=== PATIENT | female | born 1955 | race Caucasian/White ===

== ENCOUNTER 2018-10-03 11:42 | Emergency (ER) | payer OTHER ==
[~2018-10-03] VITALS: Ht 165.1 cm; Wt 65.0 kg
[~2018-10-03 11:42] MED LIST: ACET-141 PO; ASPI-903 PO; ATOR-2 PO; HYDR25TA6 PO; LEVO112T42 PO; LISI10TA2 PO; SERT25TA PO
[2018-10-03 11:46] VITALS: Ht 165.1 cm; Wt 65.0 kg
[2018-10-03] MEDS ORDERED: DIPHENHYDRAMINE 50 MG INJ IV STA (11:57)
[2018-10-03] MEDS ORDERED: ACETAMINOPHEN 325 MG TAB PO STA (11:57)
[2018-10-03] MEDS ORDERED: METOCLOPRAMIDE 10 MG INJ IV STA (11:57)
--- NOTE | 2018-10-03 12:51 | ERD ---
ER Documentation Chief Complaint Chief Complaint headache and htn started while getting ready for a stress test this am HPI This is a 62-year-old female with a past medical history of hypertension, prediabetes, previous CVA with no residual deficits who is presenting for 4 days of an occipital headache and palpitations. The patient reports waxing and waning throbbing pulsating occipital headache pains over the last 4 days. It is not the worst headache of her life. She does not endorse any photophobia or phonophobia. She does not endorse double or blurry vision. She reports nausea without vomiting. The patient has had no focal deficits. The patient has had no weakness or numbness or tingling to the face or extremities. The patient also endorses intermittent waxing and waning nonradiating mid substernal pressure-like chest pain with associated palpitations and heaviness. The patient does not endorse shortness of breath. She does not endorse lightheadedness or dizziness. She does not endorse diaphoresis. The patient was scheduled to get a stress test this morning, as her cardiac symptoms have been ongoing for some time. However, the patient developed this pressure-like chest pain prior to the stress test and she was found to be quite hypertensive. She was given aspirin and nitroglycerin, and an ambulance was called to bring her to the emergency department for further assessment. The patient reports that she was seen in an outside hospital emergency department 2 days ago for similar symptoms and ultimately discharged with an unremarkable work-up. The patient denies feeling sick recently. The patient denies fever or chills. The patient does not endorse neck or back pain. The patient denies abdominal pain. The patient denies changes to bowel movements or urination. ROS All systems reviewed and are negative except as per history of present illness. Medications Home Meds Reported Medications Sertraline Hcl* (Zoloft*) 25 Mg Tablet, 25 MG PO DAILY, #30 TAB 10/03/18 Lisinopril* (Lisinopril*) 10 Mg Tablet, 10 MG PO DAILY, #30 TAB 10/03/18 Levothyroxine Sodium* (Levoxyl*) 112 Mcg Tablet, 112 MCG PO BEFORE BREAKFAST, #30 TAB 10/03/18 Hydrochlorothiazide* (Hydrochlorothiazide*) 25 Mg Tab, 25 MG PO DAILY, #30 TAB 10/03/18 Atorvastatin* (Atorvastatin*) 80 Mg Tablet, 80 MG PO QHS, #30 TAB 10/03/18 Aspirin* (Aspirin* Chew) 81 Mg Tab.chew, 81 MG PO DAILY, TAB.CHEW 10/03/18 Acetaminophen* (Acetaminophen*) 500 MG Extra Strength Tablet, 1000 MG PO Q8H PRN for PAIN AND OR ELEVATED TEMP, TAB 10/03/18 Allergies Allergies: Coded Allergies: No Known Allergy (Unverified , 10/03/18) PMhx/Soc History of Surgery: No Anesthesia Reaction: No Hx Neurological Disorder: Yes (CVA ) Hx Respiratory Disorders: No Hx Cardiac Disorders: Yes (Hypertension, prediabetes) Hx Psychiatric Problems: No Hx Miscellaneous Medical Probl: No Hx Alcohol Use: No Hx Substance Use: No Hx Tobacco Use: No Smoking Status: Never smoker FmHx Family History: No diabetes Physical Exam Vitals Vital Signs Date Temp Pulse Resp B/P (MAP) Pulse Ox O2 O2 Flow FiO2 Time Delivery Rate 10/03/18 98.7 92 16 123/77 97 Room Air 14:52 (92) 10/03/18 98.2 95 21 143/77 95 Room Air 13:30 (99) 10/03/18 98.2 102 16 134/63 97 Room Air 13:00 (86) 10/03/18 98.2 110 18 180/88 98 11:46 (118) Physical Exam Const: No apparent distress, well-developed, well-nourished Head: Normocephalic, Atraumatic Eyes: Normal Conjunctiva. Extraocular movements intact. Pupils equal, round and reactive to light ENT: Normal External Ears, Nose and Mouth. Neck: Full range of motion. No meningismus. Resp: Clear to auscultation bilaterally, No wheezes, rales or rhonchi Cardio: Regular rate and rhythm. No murmurs, rubs or gallops Abd: Soft, non tender, non distended. Normal bowel sounds Skin: No petechiae or rashes Back: No midline tenderness. No CVA tenderness Ext: No cyanosis, or edema Neur: Awake and alert, oriented 4. Cranial nerves intact. No facial droop. Normal strength, sensation and coordination. Psych: Normal Mood and Affect Result Diagram: 10/03/18 1218 10/03/18 1218 Results 24 hrs Laboratory Tests Test 10/03/18 12:18 10/03/18 15:27 White Blood Count 9.6 10^3/ul Red Blood Count 4.86 10^6/ul Hemoglobin 14.3 g/dl Hematocrit 42.9 % Mean Corpuscular Volume 88.3 fl Mean Corpuscular Hemoglobin 29.4 pg Mean Corpuscular Hemoglobin Concent 33.3 g/dl Red Cell Distribution Width 12.7 % Platelet Count 201 10^3/UL Mean Platelet Volume 10.9 fl Immature Granulocytes % 0.500 % Neutrophils % 84.5 % Lymphocytes % 13.0 % Monocytes % 1.8 % Eosinophils % 0.0 % Basophils % 0.2 % Nucleated Red Blood Cells % 0.0 /100WBC Immature Granulocytes # 0.050 10^3/ul Neutrophils # 8.1 10^3/ul Lymphocytes # 1.3 10^3/ul Monocytes # 0.2 10^3/ul Eosinophils # 0.0 10^3/ul Basophils # 0.0 10^3/ul Nucleated Red Blood Cells # 0.0 10^3/ul Prothrombin Time 12.5 Sec Prothrombin Time Ratio 1.0 INR International Normalized Ratio 0.92 Activated Partial Thromboplast Time 29.9 Sec Urine Color YELLOW Urine Clarity CLEAR Urine pH 6.0 Urine Specific [place] 1.021 Urine Ketones NEGATIVE mg/dL Urine Nitrite NEGATIVE mg/dL Urine Bilirubin NEGATIVE mg/dL Urine Urobilinogen NEGATIVE mg/dL Urine Leukocyte Esterase NEGATIVE Jaclyn/ul Urine Hemoglobin NEGATIVE mg/dL Urine Glucose NEGATIVE mg/dL Urine Total Protein NEGATIVE mg/dl Sodium Level 144 mmol/L Potassium Level 4.3 mmol/L Chloride Level 106 mmol/L Carbon Dioxide Level 27 mmol/L Anion Gap 11 Blood Urea Nitrogen 16 mg/dl Creatinine 0.59 mg/dl Est Glomerular Filtrat Rate mL/min > 60 mL/min Glucose Level 122 mg/dl Calcium Level 9.6 mg/dl Troponin I < 0.012 ng/ml < 0.012 ng/ml Current Medications Medications Dose Sig/[place] Start Time Status Last (Trade) Ordered Route PRN Stop Time Admin Dose Reason Admin 650 mg ONCE STAT 10/03/18 DC 10/03/18 Acetaminophen PO 11:57 12:52 (Tylenol 10/03/18 11:59 Tab) 10 mg ONCE STAT 10/03/18 DC 10/03/18 Metoclopramid IV 11:57 12:52 e HCl 10/03/18 12:00 (Reglan) 25 mg ONCE STAT 10/03/18 DC 10/03/18 Diphenhydrami IV 11:57 12:52 ne HCl 10/03/18 12:00 (Benadryl) Ketorolac 15 mg ONCE STAT 10/03/18 DC 10/03/18 Tromethamine IV 13:08 13:21 (Toradol) 10/03/18 13:09 Procedures/MDM MDM The patient's presentation warrants further investigation. Previous medical records, if available, were reviewed. LABS The patient's laboratory testing was obtained and reviewed. No emergent treatment was required unless described below. CBC: No E/o systemic infection or severe anemia or thrombocytopenia Chemistry: No E/o severe acidosis or alkalosis or renal failure or diabetic ketoacidosis PT/INR: No E/o significant coagulopathy Troponin: No E/o acute ischemia x2 Urine: No E/o acute infection or hematuria EKG EKG read by me: Rate/Rhythm: Sinus tachycardia at 101 bpm Intervals: Normal [place]: Right axis deviation Impression: No evidence of acute ischemia. Sinus tachycardia. IMAGING Imaging and Radiology interpretation reviewed. CXR FINDINGS: There is bilateral lung base atelectasis versus scarring. The heart size is normal. There is no pleural effusion. There is no pneumothorax. IMPRESSION: There is bilateral lung base atelectasis versus scarring. Electronically viewed and signed by Physician Kashif on 10/03/2018 12:37 CT Head FINDINGS: Hemorrhage: No evidence of intracranial hemorrhage. Acute ischemic changes: No evidence of acute ischemic changes. Mass effect: None. Parenchymal volume: Within normal limits for age. Ventricular system: Concordant with parenchymal volume.Chronic changes: Small area of encephalomalacia involving the left frontal lobe from prior infarction. Mild chronic-appearing microvascular ischemic changes of the supratentorial white matter. Extracranial soft tissues: Unremarkable. Calvarium: No fractures. Paranasal sinuses: Visualized paranasal sinuses are clear. Mastoid air cells: Visualized mastoid air cells are clear. IMPRESSION: No acute intracranial abnormalities. Mild chronic-appearing microvascular ischemic changes of the supratentorial white matter with small area of encephalomalacia involving the left frontal lobe from prior infarction. Electronically viewed and signed by .Arron Bishop MD, MD on 10/03/2018 13:02 TREATMENT/DISPOSITION The patient presents for multiple complaints. The patient endorses chest heaviness and palpitations. She is scheduled to have a stress test today, but due to the patient's symptoms and hypertension, she was ultimately transferred to the emergency department for further assessment. The patient was given aspirin and nitroglycerin prior to arrival. The patient's blood pressure was elevated in the emergency department. She was given a dose of Cardene in the ER. The patient's chest xray does not reveal pneumonia or pneumothorax or pleural effusions or pulmonary edema. The patient does not have a widened m ediastinum and does not have signs or symptoms concerning for thoracic aortic aneurysm or dissection. The patient does not have pneumomediastinum or signs concerning for esophageal tear or rupture. The patient has no clinical or radiographic signs of pericardial effusion or tamponade. The patient does not have pneumoperitoneum and I have decreased suspicion of viscus perforation as possible referred pain. The patient does not have a history of heart failure and I have low suspicion for this. The patient does not have a diagnosis of COPD and is not wheezing today. The patient is not tachypneic or hypoxic. The patient is breathing comfortably and without pleuritic pain. The patient is not on hormonal therapy. The patient has no history of clotting or bleeding disorders. The patient has no calf tenderness. The patient has had no hemoptysis. I have decreased suspicion for PE. The patient's troponin and EKG are reassuring. The patient's repeat troponin remains negative. I have low suspicion for acute coronary syndrome. The patient's HEART score is equal to or less than 3. This stratifies the patient into the low risk (<1%) group for an major adverse cardiac event within the next 30 days. Shared decision making was enacted. The risks and benefits of admission and discharge were discussed with the patient and it was ultimately decided that the patient would be discharged with close outpatient follow up and evaluation for functional testing within 72 hours. The patient presents with a headache as well. This could be related to the patient's elevated blood pressure. Given the patient's history of CVA, CT scan was performed which did not reveal any acute abnormalities. Differential diagnosis includes migraine, tension headache, cluster headache. The patient has no focal deficits. The neurologic exam is reassuring. I have decreased suspicion for cerebral ischemia. There was no trauma or injury. There is no personal or family history of cerebral aneurysm. This is not the worst headache of the patient's life. It was not acutely severe. It is been progressive in nature. I have decreased suspicion for SAH or other ICH. I have low suspicion for temporal arteritis, cavernous venous thrombosis, subdural hematoma, epidural hematoma, meningitis. DISCHARGE Upon reevaluation of the patient, symptoms have improved. No emergent diagnoses were identified. At this time, I feel that the patient stable for discharge. The patient was instructed to follow-up with a primary care physician in 1-3 days. The patient will be given strict precautions with which to return to the emergency department. Prescriptions: None The patient's blood pressure was elevated at greater than 120/80 while in the emergency department. The patient was otherwise stable with no evidence of hypertensive urgency or emergency. The patient does not require admission for blood pressure control. I have discussed with the patient the risks of hypertension. I have instructed the patient to return to the ER for any new or worsening symptoms including chest pain, shortness of breath, headache, blurred vision, confusion, nausea, vomiting or LOC. I have advised the patient to follow up with the primary care physician for outpatient monitoring and treatment for hypertension in 1-3 days. DISCLAIMER Inadvertent spelling and grammatical errors are likely due to EHR/dictation software use and do not reflect on the overall quality of patient care. Note that the electronic time recorded on this note does not necessarily reflect the actual time of the patient encounter. Departure Diagnosis: Primary Impression: Headache Headache type: unspecified Headache chronicity pattern: episodic headache Intractability: not intractable Qualified Codes: R51 - Headache Additional Impressions: Nonspecific chest pain Palpitations Hypertension Hypertension type: essential hypertension Qualified Codes: I10 - Essential (primary) hypertension Condition: Stable Patient Instructions: Self-Care for Headaches, Chest Pain, Uncertain Cause, High Blood Pressure (Hypertension) Additional Instructions: Thank you for for coming to [facility] for your care today. Please ask your nurse or provider if you have questions about your care today and do not leave until all your questions have been answered. Please use any medications given as directed and follow-up with your doctor (or the doctor you were referred to) in the next 1-3 days. If you do not have a primary care doctor you may follow up at the [facility] or [facility] (listed below). You may also use motrin and tylenol as needed for fever and/or pain unless instructed otherwise by your provider or nurse. Indications for more urgent follow-up have been discussed, but you may return to the Emergency Department at ANY time for any worrisome or worsening symptoms. If you have abdominal pain, please know that no test or exam you received is perfect and you should follow up within 8 hours for continued pain. If you had any imaging studies today, such as an X-Ray or CT Scan, these studies will be reviewed later by a radiologist. You will be called if there are important findings that were not identified today, so make sure the contact information you provided at registration is correct. If you received any narcotic pain control medicine today, such as Vicodin, Morphine or Dilaudid, your coordination and judgment may be affected for a number of hours. Please do not drive or operate heavy machinery, and you may want someone to assist you at home. If you were given a prescription for narcotic medication, be aware that it is very addictive- use sparingly and only if necessary. PLEASE SEEK FURTHER EVALUATION AND MANAGEMENT AT YOUR DOCTORS OFFICE WITHIN THE NEXT 1-3 DAYS. IT IS YOUR RESPONSIBILITY TO MAKE AN APPOINTMENT FOR FOLOW-UP CARE. IF YOU HAVE A PRIMARY DOCTOR, PLEASE CALL THEIR OFFICE TO SCHEDULE AN APPOINTMENT FOR FOLLOW UP. IF YOU DO NOT HAVE A PRIMARY DOCTOR YOU CAN CALL OUR PHYSICIAN REFERRAL HOTLINE AT IF YOU CAN NOT AFFORD TO SEE A PHYSICIAN YOU CAN CHOSE FROM THE FOLLOWING [facility]: [facility] [address]. [facility] [address] [facility] [address] [facility] [facility] [address] [facility]. [facility] [address] [facility]. [facility]. [address] PRINCESS MCGUIRE MD Oct 03, 2018 12:43
[2018-10-03] MEDS ORDERED: KETOROLAC 15 MG INJ IV STA ×2 (13:08→16:11)
[2018-10-03 16:32] VITALS: BP 141/70; PULSE 89; RESP 16
== END 2018-10-03 16:40 | disposition home or self-care (01) ==
LOC: E/R 11:42
DX: R07.9 Chest pain, unspecified (principal); R00.2 Palpitations; I10 Essential (primary) hypertension; Z86.73 Personal history of transient ischemic attack (TIA), and cerebral infarction without residual deficits; Z79.82 Long term (current) use of aspirin
CPT/HCPCS: 36415; 70450; 71045; 80048; 81003; 84484; 85025; 85610; 85730; 93005; 96374; 96375; 96376; J1200; J1885; J2765; Z7502; Z7610